=== PATIENT | male | born 1995 | race Caucasian/White ===

== ENCOUNTER 2018-02-10 22:18 | Emergency (ER) | payer BC ==
[2018-02-10] MEDS ORDERED: Tetracaine 0.5% OPTH.SOL 4 ML* 1 DROP BTL RIGHT EYE ONE (23:38)
[2018-02-10] MEDS ORDERED: Fluorescein Sod TOPICAL 0.6* 0.6 MG TEST OPHTHALMIC ONE (23:38)
[2018-02-11] MEDS ORDERED: Eye Irrigation Solution 30 ML BOTTLE LEFT EYE ONE (00:42)
[2018-02-11] MEDS ORDERED: Erythromycin OPTH OINT* APPLIC OINT LEFT EYE SCH (01:00)
[2018-02-11 01:50] VITALS: BP 000/00
--- NOTE | 2018-02-11 02:30 | ED ---
Throat Pain/Nasal Congestion - HPI Summary HPI Summary: Patient is a 22-year-old male who presents emergency department for left eye pain. Patient states prior to arrival he was cutting wood and believes he had a piece of wood in his eye. States he did not have pain until he rubbed his eye. Does not wear contact lenses. Symptoms are mild in severity. Pain is constant and blinking exacerbated pain. He states his tetanus immunization is up-to-date. Denies change in vision. - History of Current Complaint Chief Complaint: EDEyeProblem Time Seen by Provider: 02/10/18 23:38 Hx Obtained From: Patient - Allergies/Home Medications Allergies/Adverse Reactions: Allergies Allergy/AdvReac Type Severity Reaction Status Date / Time No Known Allergies Allergy Verified 02/10/18 22:33 PMH/Surg Hx/FS Hx/Imm Hx Previously Healthy: Yes Infectious Disease History: No Infectious Disease History: Denies: Traveled Outside the [place] in Last 30 Days - Social History Occupation: Student Lives: Dormitory/Roommates Alcohol Use: Occasionally Substance Use Type: Reports: None Smoking Status (MU): Never Smoked Tobacco Review of Systems Positive: Erythema, Other - left eye pain All Other Systems Reviewed And Are Negative: Yes Physical Exam Triage Information Reviewed: Yes Vital Signs On Initial Exam: Initial Vitals Temp Pulse Resp BP Pulse Ox 98.8 F 69 16 162/90 97 02/10/18 22:31 02/10/18 22:31 02/10/18 22:31 02/10/18 22:31 02/10/18 22:31 Vital Signs Reviewed: Yes Appearance: Positive: Pain Distress - Patient sitting up in bed with his eyes closed. Appears uncomfortable but nontoxic. Friend present. Skin: Positive: Warm, Dry Head/Face: Positive: Normal Head/Face Inspection Eyes: Positive: Other: - Left eye is injected. No periorbital erythema or edema. No drainage. Anterior chamber is clear. Neck: Positive: Supple Neurological: Positive: Normal, CN Intact II-III Psychiatric: Positive: Normal Procedures - Procedure Summary Procedure Summary: Left eye was anesthetized with tetracaine drops and stained with fluorescein dye. Eye was examined under lowry lamp. Small area of uptake at 6:00. Eyelid was everted. No foreign bodies noted. Eye was copiously irrigated by nurse. Patient tolerated well. Diagnostics - Vital Signs Vital Signs Temp Pulse Resp BP Pulse Ox 02/11/18 01:49 0 F 0 0 000/00 0 02/10/18 22:31 98.8 F 69 16 162/90 97 - Laboratory Lab Statement: Any lab studies that have been ordered have been reviewed, and results considered in the medical decision making process. EENT Course/Dx - Course Course Of Treatment: Patient presenting with eye pain after cutting wood. He does appear to have a small corneal abrasion. Erythromycin ointment given in emergency Department to apply 3 times a day. Advised Tylenol or Motrin for pain as directed. He was given information for on-call ophthalmology for follow -up if pain continues. To return to ER symptoms change or worsen. - Differential Diagnoses Differential Diagnoses: Abrasion, Allergic Rhinitis, Corneal Abrasion - Diagnoses Provider Diagnoses: Corneal abrasion Discharge - Sign-Out/Discharge Documenting (check all that apply): Discharge/Admit/Transfer - Discharge Plan Condition: Good Disposition: HOME Patient Education Materials: Corneal Abrasion (ED) Referrals: [facility] - Wayne MACIEL [Primary Care Provider] - Bobby Guan MD [Medical Doctor] - Additional Instructions: Schedule a follow up appointment with Dr. Guan if symptoms continue Use antibiotic ointment 3x a day x 7 days Can take Tylenol or Motrin for pain as directed Return to ER of increased pain, purulent drainage, vision changes or if concerned - Billing Disposition and Condition Condition: GOOD Disposition: HOME
== END 2018-02-11 01:50 | disposition home or self-care (01) ==
LOC: ED 22:18
DX: S05.02XA Injury of conjunctiva and corneal abrasion without foreign body, left eye, initial encounter (principal); W22.8XXA Striking against or struck by other objects, initial encounter; Y93.89 Activity, other specified; Y92.9 Unspecified place or not applicable
CPT/HCPCS: 99281; A9270-GY